=== PATIENT | male | born 1955 | race Hispanic/Latino ===

== ENCOUNTER 2018-04-21 18:33 | Inpatient (IN) | payer OTHER ==
[2018-04-21] MEDS ORDERED: NACL 0.9% 1000 ML 1,000 ML ONE (18:50)
[2018-04-21] MEDS ORDERED: CARDIZEM IV ONE ×2 (18:59→19:02)
[2018-04-21] MEDS ORDERED: NACL 0.9% 1000 ML 1,000 ML IV ONE (19:09)
[2018-04-21] MEDS ORDERED: ZOFRAN IV ONE (19:14)
[2018-04-21] MEDS ORDERED: BABY ASPIRIN PO ONE (19:16)
--- NOTE | 2018-04-21 19:16 | Emergency Department Report ---
HPI - General Chief Complaint: Dyspnea/Respdistress Time Seen by Provider: 04/21/18 19:02 - HPI HPI: The patient's is a 62-year-old male with a significant history of hypertension, presents for evaluation of dyspnea and racing heart. The patient reports constant severe dyspnea since awakening this morning, about 12 hours prior to arrival, severe, exacerbated with physical activity or ambulation, improved at rest. He states that his palpitations have been severe as well, and pounding in quality. He denies pressure-like or sharp chest pain. The patient denies fever, neck pain, parasthesias,cough, hemoptysis, syncope, unilateral leg swelling, calf muscle pain, heat intolerance, insomnia, recent unexplained weight loss. ED Past Medical Hx - Past Medical History Hx Hypertension: Yes Hx Renal Disease: (KIDNEY STONES) Additional medical history: kidney stones - Surgical History Additional Surgical History: tonsils and adnoids removed as a child, surgery for kidney stones (03/2015) - Social History Smoking Status: Current Every Day Smoker Substance Use Type: None - Medications Home Medications: Home Medications Medication Instructions Recorded Confirmed Last Taken Type Lisinopril 20 mg PO QDAY 04/21/18 04/21/18 Unknown History cloNIDine [Catapres] 0.2 mg PO QDAY 04/21/18 04/21/18 Unknown History hydrALAZINE [Apresoline TAB] 25 mg PO QDAY 04/21/18 04/21/18 Unknown History ED Review of Systems ROS: Stated complaint: SOB Other details as noted in HPI Constitutional: denies: fever ENT: denies: throat or neck pain Respiratory: denies: cough reports shortness of breath Cardiovascular: denies: chest pain reports palpitations Endocrine: denies unexplained weight loss or gain Gastrointestinal: denies: abdominal pain, nausea Genitourinary: denies: dysuria Musculoskeletal: denies: leg swelling Skin: denies: rash Neurological: denies: headache Hematological/Lymphatic: denies: easy bleeding or easy bruising Psych: denies sadness or hopelessness Physical Exam - Physical Exam Vital Signs: BP 177/130 HR 180 [id number] O2 sat 99 RR 24 Physical Exam: General: well-nourished, well-developed, no acute distress Head: Normocephalic, atraumatic Eyes: normal sclera ENT: Mucous membranes are pale and dry Neck: No neck stiffness, no cervical adenopathy Respiratory: Breath sounds equal bilaterally, no wheezing, rales, or rhonchi Cardio: S1 and S2 present, no murmurs, rubs, gallops, capillary refill is delayed Abdomen: Normoactive bowel sounds, soft abdomen, no rigidity, no guarding or rebound tenderness Chest WALL/Back: No tenderness to palpation of the chest wall, no CVA tenderness with percussion Musc: No pitting edema Skin: Diaphoretic, warm Neuro: no facial drooping, normal speech Psych: Normal affect ED Medical Decision Making - Lab Data Result diagrams: 04/21/18 20:00 04/21/18 20:00 - Medical Decision Making The patient was seen and examined by myself. The patient is placed on a phototypesetting equipment monitor and continuous pulse ox. On initial evaluation, the patient was found to be in no distress. EKG reveals irregularly irregular narrow complex tachycardia, without P waves, consistent with atrial fibrillation with RVR. The patient is given adenosine for attempted treatment of his age of fibrillation without success. The patient subsequently given a bolus of Cardizem and initiated on a Cardizem infusion which does decrease patient heart rate from 180 to 110s. Cardizem will be titrated to heart rate of 90. Patient given a tablet of aspirin. Chest x-ray is negative for pneumothorax, focal consolidation, pulmonary vascular congestion, pleural effusion, or other obvious acute cardiopulmonary disease process. Lab results were non-concerning including levels of troponin, WBC, hemoglobin, hematocrit, electrolytes, renal function. Dr. Luther, the physician on-call for the hospitalist service was contacted. He agreed to admit the patient for further treatment and close monitoring. The ED admit order was placed. The patient was admitted in guarded condition. Critical Care Time: Yes Critical care time in (mins) excluding proc time.: 35 Critical care attestation.: If time is entered above; I have spent that time in minutes in the direct care of this critically ill patient, excluding procedure time. Critical Care Time: 35 min ED Disposition Clinical Impression: Atrial fibrillation with rapid ventricular response Disposition: OP ADMIT IP TO THIS HOSP Is pt being admited?: Yes Does the pt Need Aspirin: Yes Condition: Critical Time of Disposition: 19:16
[2018-04-21] MEDS ORDERED: MORPHINE IV ONE (20:00)
[2018-04-21] MEDS ORDERED: CARDIZEM 100 MG in D5W 80 ML IV SCH (20:00)
[2018-04-21 20:22] LABS: Basophils # (Auto) 0.1 K/mm3 (0.0-0.1); Basophils % (Auto) 0.8 % (0.0-1.8); Eosinophils # (Auto) 0.2 K/mm3 (0.0-0.4); Eosinophils % (Auto) 1.2 % (0.0-4.3); Hematocrit 41.8 % (35.5-45.6); Hemoglobin 14.6 gm/dl (11.8-15.2); Lymphocytes # (Auto) 1.4 K/mm3 (1.2-5.4); Lymphocytes % (Auto) 11.6 % (13.4-35.0); Mean Corpuscular HGB Conc 35 % (32-34); Mean Corpuscular Hemoglobin 28 pg (28-32); Mean Corpuscular Volume 81 fl (84-94); Monocytes # (Auto) 0.9 K/mm3 (0.0-0.8); Monocytes % (Auto) 7.4 % (0.0-7.3); Platelet Count 296 K/mm3 (140-440); Red Blood Count 5.14 M/mm3 (3.65-5.03); Red Cell Distribution Width 15.4 % (13.2-15.2)
[2018-04-21 20:35] LABS: Partial Thromboplastin Time 32.1 Sec. (24.2-36.6)
[2018-04-21 20:38] LABS: INR 1.08 (0.87-1.13)
[2018-04-21 20:49] LABS: Alanine Aminotransferase 13 units/L (7-56); Albumin 3.4 g/dL (3.9-5); BUN/Creatinine Ratio 11; Blood Urea Nitrogen 13 mg/dL (9-20); Calcium 8.2 mg/dL (8.4-10.2); Hemolysis Index 11
[2018-04-21 21:00] LABS: LDL Cholesterol,Direct 151 mg/dL (50-130)
[2018-04-21 21:01] LABS: Chol/HDL Ratio 7.23 %; HDL Cholesterol 26 mg/dL (40-59)
--- NOTE | 2018-04-21 21:23 | XRay Report ---
FINAL REPORT PROCEDURE: Chest. TECHNIQUE: Chest radiograph anteroposterior view. CPT 41127 HISTORY: Chest pain. COMPARISON: No prior studies are available for comparison. FINDINGS: The heart size is normal. There is mild tortuosity of the thoracic aorta. The lungs are grossly clear. There are no pleural effusions. The soft tissues and regional skeleton are unremarkable. IMPRESSION: Negative portable chest.
--- NOTE | 2018-04-21 23:23 | Event Note ---
Date: 04/21/18 See dictated history and physical in the reports Atrial fibrillation with RVR Htn
[2018-04-21] MEDS ORDERED: PERCOCET 5/325 PO PRN (23:26)
[2018-04-21] MEDS ORDERED: ZOFRAN IV PRN (23:26)
[2018-04-21] MEDS ORDERED: MORPHINE IV PRN (23:26)
[2018-04-21] MEDS ORDERED: SODIUM CHLORIDE FLUSH SYRINGE 10 ML IV PRN (23:26)
[2018-04-21] MEDS ORDERED: TYLENOL PO PRN (23:26)
[2018-04-21] MEDS ORDERED: NACL 0.9% 1000 ML 1,000 ML IV SCH (23:45)
[2018-04-22] MEDS ORDERED: K-DUR PO ONE ×3 (00:10→12:00)
--- NOTE | 2018-04-22 00:13 | History and Physical Report ---
CHIEF COMPLAINT: Palpitations for the last 12 hours. HISTORY OF PRESENT ILLNESS: A 62-year-old male with history of hypertension and kidney stones, comes in for evaluation of palpitations and shortness of breath. The patient has been having severe dyspnea since a.m. when he woke up. It has been going on for 12 hours. Exacerbated with physical activity. Diaphoresis present. Palpitations present. Orthopnea present. No exacerbating or relieving factors. Did not have irregular heart in the past. PAST MEDICAL HISTORY: Hypertension and kidney stones. PAST SURGICAL HISTORY: Tonsils and adenoids removed as a child and also surgery for kidney stones. SOCIAL HISTORY: Current everyday smoker. FAMILY HISTORY: Hypertension. REVIEW OF SYSTEMS: Significant for palpitations, racing of the heart and shortness of breath. Otherwise, review of systems negative. A 14-point review of systems done. PHYSICAL EXAMINATION: GENERAL: Young elderly male, cooperative during examination. VITAL SIGNS: Blood pressure is 144/95, temperature is 98, pulse initially was 150, came down to 99, respirations are 16, sats are 96%. HEENT: Unremarkable. Pupils are equal and reactive. NECK: Supple, no lymphadenopathy, no thyromegaly. LUNGS: Clear to auscultation and percussion. CARDIOVASCULAR: S1, S2 heard. No gallop, no murmur, no rub. Apical impulse in the left fifth intercostal space and midclavicular line. ABDOMEN: Soft and benign. No hepatosplenomegaly. No guarding, no rigidity. Hernial orifices are normal. EXTREMITIES: Good pedal pulses. No pedal edema. CENTRAL NERVOUS SYSTEM: Alert and oriented x 4, nonfocal exam. LABORATORY DATA: Significant for white count of 12,200, hemoglobin of 14.6, hematocrit of 41.8, platelet count of 296. BNP was 4682 and troponin is elevated at 0.049. LDL is 151, potassium is 3.2. EKG shows atrial fibrillation with rapid ventricular rate. Thyroid is normal. ASSESSMENT AND PLAN: 1. Supraventricular tachycardia. The patient was given adenosine with no relief. The patient started on Cardizem drip. The heart rate improved. Continue Cardizem and transition to p.o. Cardizem. Dyspnea, rule out congestive heart failure. The patient to get echocardiogram and Cardiology consult. 2. Hypertension. Continue his current antihypertensives. Blood pressure control. 3. Elevated troponin, rule out myocardial infarction. Serial troponins and Lexiscan in the morning. 4. Nicotine dependence. Nicoderm patch ordered. 5. Deep venous thrombosis prophylaxis, Lovenox 40 mg subcutaneous daily ordered. The patient to be admitted to telemetry. Cardiology consult requested. JOB# [id number] VSM/NTS
[2018-04-22] MEDS: APRESOLINE PO SCH ×2 (00:28→18:12)
[2018-04-22] MEDS: CATAPRES PO SCH ×3 (00:29→22:56)
[2018-04-22 05:47] LABS: Basophils # (Auto) 0.1 K/mm3 (0.0-0.1); Basophils % (Auto) 1.2 % (0.0-1.8); Eosinophils # (Auto) 0.3 K/mm3 (0.0-0.4); Eosinophils % (Auto) 3.3 % (0.0-4.3); Hematocrit 41.5 % (35.5-45.6); Hemoglobin 13.7 gm/dl (11.8-15.2); Lymphocytes # (Auto) 1.5 K/mm3 (1.2-5.4); Lymphocytes % (Auto) 14.6 % (13.4-35.0); Mean Corpuscular HGB Conc 33 % (32-34); Mean Corpuscular Hemoglobin 27 pg (28-32); Mean Corpuscular Volume 82 fl (84-94); Monocytes # (Auto) 0.7 K/mm3 (0.0-0.8); Monocytes % (Auto) 7.3 % (0.0-7.3); Platelet Count 304 K/mm3 (140-440); Red Blood Count 5.08 M/mm3 (3.65-5.03); Red Cell Distribution Width 15.3 % (13.2-15.2)
[2018-04-22 06:03] LABS: Alanine Aminotransferase 11 units/L (7-56); Albumin 3.1 g/dL (3.9-5); BUN/Creatinine Ratio 13; Blood Urea Nitrogen 16 mg/dL (9-20); Calcium 7.9 mg/dL (8.4-10.2); Hemolysis Index 5
[2018-04-22] MEDS ORDERED: LASIX IV ONE (06:30)
--- NOTE | 2018-04-22 06:36 | Event Note ---
Patient complaint shortness of breath He has crackles at the bases Give Lasix, obtain ABG Check CT chest, rule out PE Patient signed out to Dr Santos
--- NOTE | 2018-04-22 07:24 | Cat Scan Report ---
FINAL REPORT EXAM: CT ANGIO CHEST HISTORY: sheree eval for PE TECHNIQUE: CT imaging obtained through the chest in pulmonary angiographic phase following intravenous administration of contrast. Transaxial, Coronal and sagittal reformats with maximal intensity projections are provided. PRIORS: Chest radiograph 04/21/2018 FINDINGS: Normal caliber main pulmonary artery. Well opacified pulmonary arterial tree. No pulmonary embolism. No pericardial effusion. Cardiomegaly. Coronary artery disease. There is reflux of contrast into the hepatic veins. Thoracic aorta is normal in course and caliber. No periaortic fluid or stranding. No pneumothorax or focal airspace disease. There is diffuse interstitial prominence. Moderate right and small left pleural effusions with associated compressive atelectasis. Imaged portion of the upper abdomen is remarkable for 16 millimeter right adrenal nodule with internal attenuation of approximately 26 Hounsfield units. The superficial soft tissues are unremarkable. No acute bony abnormality or worrisome osseous lesions identified. IMPRESSION: Sequela of heart failure including pulmonary interstitial edema and moderate right and small left pleural effusions. No pulmonary embolism or focal airspace disease identified. Indeterminate right adrenal nodule measures up to 16 millimeters. Follow-up MRI is recommended if this finding has not been previously documented. Coronary artery disease. A
--- NOTE | 2018-04-22 09:24 | Consultation ---
History of Present Illness Consult date: 04/22/18 Requesting physician: SANG SPENCE Consult reason: atrial fibrillation History of present illness: The patient is a 62-year-old male with a past medical history significant for hypertension, ETOH use and tobacco use. He is previously unknown to our practice. He presented with complaints of SOB and dyspnea on exertion since he awoke yesterday AM. He denies any chest pain, palpitations, n/v, diaphoresis, dizziness or syncope. Following arrival, he was noted to be in AFib with RVR. He was initiated on IV cardizem and was noted to be in paroxysmal atrial fibrillation overnight. He denies any prior CAD, AMI, HF or arrhythmias. Past History Past Medical History: hypertension Social history: smoking, alcohol abuse. denies: prescription drug abuse, IV drug use Medications and Allergies Allergies Allergy/AdvReac Type Severity Reaction Status Date / Time No Known Allergies Allergy Unverified 08/29/13 12:07 Home Medications Medication Instructions Recorded Confirmed Last Taken Type Lisinopril 20 mg PO QDAY 04/21/18 04/21/18 Unknown History cloNIDine [Catapres] 0.2 mg PO QDAY 04/21/18 04/21/18 Unknown History hydrALAZINE [Apresoline TAB] 25 mg PO QDAY 04/21/18 04/21/18 Unknown History Active Meds: Active Medications Acetaminophen (Tylenol) 650 mg PO Q4H PRN PRN Reason: Pain MILD(1-3)/Fever >100.5/KEMP Clonidine HCl (Catapres) 0.2 mg PO Q12HR MARKIE Last Admin: 04/22/18 00:29 Dose: Not Given Diltiazem HCl (Cardizem Cd) 120 mg PO QDAY MARKIE Enoxaparin Sodium (Lovenox) 40 mg SUB-Q QDAY MARKIE Famotidine (Pepcid) 20 mg PO BID MARKIE Hydralazine HCl (Apresoline) 25 mg PO Q12HR MARKIE Last Admin: 04/22/18 00:28 Dose: Not Given Diltiazem HCl 100 mg/ Dextrose 100 mls @ 5 mls/hr IV DIRECT MARKIE; Protocol Last Infusion: 04/22/18 00:45 Dose: 0 mg/hr, 0 mls/hr Sodium Chloride (Nacl 0.9% 1000 Ml) 1,000 mls @ 42 mls/hr IV DIRECT [facility] Lisinopril (Zestril) 20 mg PO QDAY [facility] Morphine Sulfate (Morphine) 2 mg IV Q4H PRN PRN Reason: Pain, Moderate (4-6) Nicotine (Habitrol) 21 mg TD QDAY [facility] Ondansetron HCl (Zofran) 4 mg IV Q8H PRN PRN Reason: Nausea And Vomiting Oxycodone/Acetaminophen (Percocet 5/325) 1 tab PO Q6H PRN PRN Reason: Pain, Moderate (4-6) Sodium Chloride (Sodium Chloride Flush Syringe 10 Ml) 10 ml IV BID MARKIE Sodium Chloride (Sodium Chloride Flush Syringe 10 Ml) 10 ml IV PRN PRN PRN Reason: LINE FLUSH Review of Systems Constitutional: no weight loss, no weight gain, no fever, no chills, no sweats Ears, nose, mouth and throat: no ear pain, no nose pain, no sinus pressure, no sinus pain Cardiovascular: shortness of breath, dyspnea on exertion, high blood pressure, no chest pain, no orthopnea, no palpitations, no rapid/irregular heart beat, no edema, no syncope, no lightheadedness, no leg edema Respiratory: shortness of breath, dyspnea on exertion, no cough, no congestion, no wheezing, no pain on inspiration Gastrointestinal: no abdominal pain, no nausea, no vomiting, no diarrhea, no constipation, no change in bowel habits Genitourinary Male: no dysuria, no hematuria, no flank pain, no discharge, no urinary frequency, no urinary hesitancy Musculoskeletal: no neck stiffness, no neck pain, no shooting arm pain, no arm numbness/tingling, no low back pain, no shooting leg pain, no leg numbness/ tingling, no redness of joints Integumentary: no rash, no pruritis, no redness, no sores, no wounds Neurological: no head injury, no paralysis, no weakness, no parathesias, no numbness, no tingling, no seizures, no syncope Psychiatric: no anxiety Endocrine: no cold intolerance, no heat intolerance Hematologic/Lymphatic: no easy bruising, no easy bleeding Allergic/Immunologic: no urticaria, no wheezing Physical Examination Vital Signs Temp Pulse Resp BP Pulse Ox 100.1 F H 180 H 20 177/130 98 04/21/18 18:40 04/21/18 18:40 04/21/18 18:40 04/21/18 18:40 04/21/18 18:40 General appearance: no acute distress HEENT: Positive: PERRL, Normocephaly, Mucus Membranes Moist Neck: Positive: neck supple, trachea midline Cardiac: Positive: irregularly irregular, S1/S2 Lungs: Positive: Decreased Breath Sounds Neuro: Positive: Grossly Intact Abdomen: Positive: Soft. Negative: Tender Skin: Positive: Clear. Negative: Rash, Wound Musculoskeletal: No Fluid Collection, No Pain, Normal Range of Motion Extremities: Absent: edema Results 04/22/18 04:58 04/22/18 04:58 Cardiac Enzymes 04/21/18 04/22/18 Range/Units 20:00 04:58 AST 11 10 (5-40) units/L Coagulation 04/21/18 Range/Units 20:00 PT 14.6 (12.2-14.9) Sec. INR 1.08 (0.87-1.13) APTT 32.1 (24.2-36.6) Sec. Lipids 04/21/18 Range/Units 20:00 Triglycerides 130 (2-149) mg/dL Cholesterol 188 (50-199) mg/dL HDL Cholesterol 26 L (40-59) mg/dL Cholesterol/HDL Ratio 7.23 % CBC 04/21/18 04/22/18 Range/Units 20:00 04:58 WBC 12.2 H 10.0 (4.5-11.0) K/mm3 RBC 5.14 H 5.08 H (3.65-5.03) M/mm3 Hgb 14.6 13.7 (11.8-15.2) gm/dl Hct 41.8 41.5 (35.5-45.6) % Plt Count 296 304 (140-440) K/mm3 Lymph # 1.4 1.5 (1.2-5.4) K/mm3 [place] # 0.9 H 0.7 (0.0-0.8) K/mm3 Eos # 0.2 0.3 (0.0-0.4) K/mm3 Baso # 0.1 0.1 (0.0-0.1) K/mm3 Comprehensive Metabolic Panel 04/21/18 04/22/18 Range/Units 20:00 04:58 Sodium 142 140 (137-145) mmol/L Potassium 3.2 L 3.2 L (3.6-5.0) mmol/L Chloride 101.3 103.1 (98-107) mmol/L Carbon Dioxide 26 24 (22-30) mmol/L BUN 13 16 (9-20) mg/dL Creatinine 1.2 1.2 (0.8-1.5) mg/dL Glucose 118 H 120 H (75-100) mg/dL Calcium 8.2 L 7.9 L (8.4-10.2) mg/dL AST 11 10 (5-40) units/L ALT 13 11 (7-56) units/L Alkaline Phosphatase 62 56 (35-129) units/L Total Protein 6.4 6.6 (6.3-8.2) g/dL Albumin 3.4 L 3.1 L (3.9-5) g/dL - Imaging and Cardiology Echo: pending EKG: report reviewed, image reviewed EKG interpretations - Telemetry EKG Rhythm: Atrial Fibrillation - EKG Supraventricular dysrhythmia: atrial fibrillation Assessment and Plan Thyroid profile WNL. Chest CTA negative for PE. Replete K+ and obtain serum Mg. Obtain echo. Optimize HR - increase cardizem CD to 240mg daily and initiate lopressor 25mg BID. Will attempt to wean off home clonidine to allow for addition of other agents. Initiate scheduled diuresis with IV lasix. Initiate full dosage lovenox BID for systemic AC and consider conversion to OAC prior to hospital discharge. Troponin elevation is likely secondary to HF, HTN, AFib with RVR. Pt denies chest pain, ECG with no acute ischemic changes. Cont to trend Peter. Cessation of tobacco and ETOH encouraged. Assessment and plan reviewed with pt at bedside. The patient has been seen in conjunction with Dr. Johnson who agrees with the assessment and plan of care. - Patient Problems (1) Atrial fibrillation with rapid ventricular response Current Visit: Yes Status: Acute (2) Acute heart failure Current Visit: Yes Status: Acute (3) Accelerated hypertension Current Visit: Yes Status: Chronic (4) Hypokalemia Current Visit: Yes Status: Acute (5) Elevated troponin Current Visit: Yes Status: Acute (6) Tobacco use Current Visit: Yes Status: Chronic (7) ETOHism Current Visit: Yes Status: Acute
[2018-04-22] MEDS ORDERED: LOVENOX SUB-Q SCH ×2 (10:00→11:00)
[2018-04-22] MEDS ORDERED: CARDIZEM CD PO SCH (10:00)
[2018-04-22] MEDS: PEPCID PO SCH ×2 (12:28→22:55)
[2018-04-22] MEDS: CARDIZEM CD PO SCH (12:28)
[2018-04-22] MEDS: HABITROL TD SCH (12:29)
[2018-04-22] MEDS: ZESTRIL PO SCH (12:29)
[2018-04-22] MEDS: SODIUM CHLORIDE FLUSH SYRINGE 10 ML IV SCH ×2 (12:29→22:58)
[2018-04-22] MEDS: LOPRESSOR PO SCH ×2 (12:29→22:56)
[2018-04-22] MEDS: LOVENOX SUB-Q SCH ×2 (12:30→22:55)
[2018-04-22 12:50] LABS: Creatine Kinase MB 2.1 ng/mL (0.0-4.0)
[2018-04-22] MEDS ORDERED: CARDIZEM 100 MG in D5W 80 ML IV SCH (15:00)
[2018-04-22] MEDS ORDERED: NACL 0.9% 1000 ML 1,000 ML IV SCH (15:00)
[2018-04-22] MEDS ORDERED: CARDIZEM ONE (15:13)
[2018-04-22] MEDS ORDERED: CARDIZEM IV ONE (15:16)
[2018-04-22] MEDS ORDERED: CORDARONE 900 MG in D5W 482 ML IV SCH (16:00)
[2018-04-22] MEDS ORDERED: CORDARONE 150 MG in D5W 97 ML IV ONE (16:18)
--- NOTE | 2018-04-22 16:27 | Event Note ---
Date: 04/22/18 Called to reevaluate pt for tachycardia - SVT v. AFib with RVR. BPs WNL. Pt denies any current chest pain or palpitations, continues to complain of SOB. ECG shows apparent AFib with RVR. IV cardizem x 1 dose given with no apparent effect in HR. IV amio initiated with some improvement in HR. Cont amio gtt. Maia VELAZQUEZ NP / DR. HENLEY
[2018-04-22] MEDS: LASIX IV SCH (18:43)
[2018-04-23] MEDS: LASIX IV SCH ×2 (06:28→18:38)
[2018-04-23 06:58] LABS: Calcium 7.9 mg/dL (8.4-10.2)
--- NOTE | 2018-04-23 11:55 | Progress Note ---
Assessment and Plan Echo reviewed - EF 30-35%, mild LVH, LA mildly dilated, moderate MR. Replete K+. D/c amio and cont PO lopressor, cardizem and lisinopril. Cont diuresis with IV lasix. Cont full dosage lovenox BID for systemic AC and consider conversion to OAC prior to hospital discharge. Cessation of tobacco and ETOH encouraged. Plan for lexiscan MPI stress test in AM to r/o ischemic CMP. NPO after MN. Assessment and plan reviewed with pt at bedside. The patient has been seen in conjunction with Dr. Johnson who agrees with the assessment and plan of care. - Patient Problems (1) Atrial fibrillation with rapid ventricular response Current Visit: Yes Status: Acute (2) Cardiomyopathy Current Visit: Yes Status: Acute (3) Acute systolic heart failure Current Visit: Yes Status: Acute (4) Accelerated hypertension Current Visit: Yes Status: Chronic (5) Hypokalemia Current Visit: Yes Status: Acute (6) Elevated troponin Current Visit: Yes Status: Acute (7) Moderate mitral regurgitation Current Visit: Yes Status: Chronic (8) Tobacco use Current Visit: Yes Status: Chronic (9) ETOHism Current Visit: Yes Status: Acute Subjective Date of service: 04/23/18 Principal diagnosis: AFib Interval history: pt resting comfortably, no current complaints. tele reviewed - pt has converted to NSR. Objective Last Vital Signs Temp 98.3 F 04/23/18 11:40 Pulse 82 04/23/18 11:40 Resp 20 04/23/18 11:40 BP 123/80 04/23/18 11:40 Pulse Ox 94 04/23/18 11:40 - Physical Examination General: No Apparent Distress HEENT: Positive: PERRL, Normocephaly, Mucus Membranes Moist Neck: Positive: neck supple, trachea midline Cardiac: Positive: Reg Rate and Rhythm, S1/S2 Lungs: Positive: Decreased Breath Sounds Neuro: Positive: Grossly Intact Abdomen: Positive: Soft. Negative: Tender Skin: Positive: Clear. Negative: Rash, Wound Musculoskeletal: No Fluid Collection, No Pain, Normal Range of Motion Extremities: Absent: edema - Labs and Meds Cardiac Enzymes 04/22/18 Range/Units 12:15 CK-MB (CK-2) 2.1 (0.0-4.0) ng/mL Comprehensive Metabolic Panel 04/23/18 Range/Units 05:21 Sodium 141 (137-145) mmol/L Potassium 3.4 L (3.6-5.0) mmol/L Chloride 101.8 (98-107) mmol/L Carbon Dioxide 25 (22-30) mmol/L BUN 19 (9-20) mg/dL Creatinine 1.4 (0.8-1.5) mg/dL Glucose 135 H (75-100) mg/dL Calcium 7.9 L (8.4-10.2) mg/dL - Imaging and Cardiology EKG: report reviewed, image reviewed Echo: pending - Telemetry EKG Rhythm: Sinus Rhythm
[2018-04-23] MEDS ORDERED: K-DUR PO ONE ×2 (13:02→17:54)
[2018-04-23] MEDS: ZESTRIL PO SCH (13:31)
[2018-04-23] MEDS: LOPRESSOR PO SCH ×2 (13:31→21:57)
[2018-04-23] MEDS: CARDIZEM CD PO SCH (13:32)
[2018-04-23] MEDS: PEPCID PO SCH ×2 (13:32→21:57)
[2018-04-23] MEDS: LOVENOX SUB-Q SCH ×2 (13:32→21:57)
[2018-04-23] MEDS: SODIUM CHLORIDE FLUSH SYRINGE 10 ML IV SCH ×2 (13:33→21:58)
[2018-04-23] MEDS: HABITROL TD SCH (13:33)
--- NOTE | 2018-04-23 16:43 | Progress Note ---
Assessment and Plan - Patient Problems (1) Atrial fibrillation with rapid ventricular response Current Visit: Yes Status: Acute Plan to address problem: Cardizem drip restarted Cardiology informed (2) Acute systolic heart failure Current Visit: Yes Status: Acute Plan to address problem: Cont Lasix (3) Cardiomyopathy Current Visit: Yes Status: Chronic Qualifiers: Cardiomyopathy type: unspecified Qualified Code(s): I42.9 - Cardiomyopathy , unspecified Plan to address problem: Optimize meds for CHF (4) Hypokalemia Current Visit: Yes Status: Acute Plan to address problem: Supplemented (5) ETOHism Current Visit: Yes Status: Chronic Plan to address problem: [place] protocol (6) Nicotine dependence Current Visit: Yes Status: Chronic Qualifiers: Nicotine product type: cigarettes Plan to address problem: on Nicoderm patch (7) DVT prophylaxis Current Visit: Yes Status: Acute Plan to address problem: On Lovenox GI prophylaxis initiated Subjective Date of service: 04/22/18 Principal diagnosis: AFib Interval history: palpitations again Objective - Constitutional Vitals: Vital Signs - 12hr 04/23/18 04/23/18 04/23/18 08:03 11:40 16:24 Temperature 98.3 F 98.3 F Pulse Rate 75 82 84 Respiratory 20 20 20 Rate Blood Pressure 109/76 123/80 140/81 [Right] O2 Sat by Pulse 97 94 99 Oximetry General appearance: Present: no acute distress, well-nourished - EENT Eyes: PERRL, EOM intact ENT: hearing intact, clear oral mucosa Ears: bilateral: normal - Neck Neck: supple, normal ROM - Respiratory Respiratory effort: normal Respiratory: bilateral: CTA - Breasts Breasts: normal - Cardiovascular Heart rate: 130 Rhythm: regular Heart Sounds: Present: S1 & S2. Absent: gallop, rub Extremities: pulses intact, No edema, normal color, Full ROM - Gastrointestinal General gastrointestinal: Present: soft, non-tender, non-distended, normal bowel sounds - Genitourinary Male genitourinary: normal - Integumentary Integumentary: clear, warm, dry - Musculoskeletal Musculoskeletal: 1, strength equal bilaterally - Neurologic Neurologic: moves all extremities - Psychiatric Psychiatric: memory intact, appropriate mood/affect, intact judgment & insight - Labs CBC & Chem 7: 04/22/18 04:58 04/23/18 05:21 Labs: Abnormal lab results 04/23/18 Range/Units 05:21 Potassium 3.4 L (3.6-5.0) mmol/L Glucose 135 H (75-100) mg/dL Calcium 7.9 L (8.4-10.2) mg/dL - Imaging and cardiology EKG: report reviewed
--- NOTE | 2018-04-23 16:54 | Progress Note ---
Assessment and Plan - Patient Problems (1) Atrial fibrillation with rapid ventricular response Current Visit: Yes Status: Acute Plan to address problem: Converted to sinus rhythm (2) Acute systolic heart failure Current Visit: Yes Status: Acute Plan to address problem: Cont Lasix (3) Cardiomyopathy Current Visit: Yes Status: Chronic Qualifiers: Cardiomyopathy type: unspecified Qualified Code(s): I42.9 - Cardiomyopathy , unspecified Plan to address problem: Optimize meds for CHF (4) Hypokalemia Current Visit: Yes Status: Acute Plan to address problem: Supplemented (5) ETOHism Current Visit: Yes Status: Chronic Plan to address problem: [place] protocol (6) Nicotine dependence Current Visit: Yes Status: Chronic Qualifiers: Nicotine product type: cigarettes Plan to address problem: on Nicoderm patch (7) DVT prophylaxis Current Visit: Yes Status: Acute Plan to address problem: On Lovenox GI prophylaxis initiated Subjective Date of service: 04/23/18 Principal diagnosis: AFib Interval history: Doing well Objective - Constitutional Vitals: Vital Signs - 12hr 04/23/18 04/23/18 04/23/18 08:03 11:40 16:24 Temperature 98.3 F 98.3 F Pulse Rate 75 82 84 Respiratory 20 20 20 Rate Blood Pressure 109/76 123/80 140/81 [Right] O2 Sat by Pulse 97 94 99 Oximetry General appearance: Present: no acute distress, well-nourished - EENT Eyes: PERRL, EOM intact ENT: hearing intact, clear oral mucosa Ears: bilateral: normal - Neck Neck: supple, normal ROM - Respiratory Respiratory effort: normal Respiratory: bilateral: CTA - Breasts Breasts: normal - Cardiovascular Heart rate: 80 Rhythm: regular Heart Sounds: Present: S1 & S2. Absent: gallop, rub Extremities: no ischemia, pulses intact, No edema, normal color, Full ROM - Gastrointestinal General gastrointestinal: Present: soft, non-tender, non-distended, normal bowel sounds - Genitourinary Male genitourinary: normal - Integumentary Integumentary: clear, warm, dry - Musculoskeletal Musculoskeletal: 1, strength equal bilaterally - Neurologic Neurologic: moves all extremities - Psychiatric Psychiatric: memory intact, appropriate mood/affect, intact judgment & insight - Allied health notes Allied health notes reviewed: nursing, case management - Labs CBC & Chem 7: 04/22/18 04:58 04/23/18 05:21 Labs: Abnormal lab results 04/23/18 Range/Units 05:21 Potassium 3.4 L (3.6-5.0) mmol/L Glucose 135 H (75-100) mg/dL Calcium 7.9 L (8.4-10.2) mg/dL
[2018-04-23] MEDS: CATAPRES PO SCH (21:58)
[2018-04-24] MEDS: LASIX IV SCH (06:10)
[2018-04-24] MEDS ORDERED: LEXISCAN IV ONE ×2 (08:51→08:53)
[2018-04-24] MEDS: CARDIZEM CD PO SCH (11:44)
[2018-04-24] MEDS: ZESTRIL PO SCH (11:45)
[2018-04-24] MEDS: PEPCID PO SCH (11:45)
[2018-04-24] MEDS: HABITROL TD SCH ×2 (11:45→11:57)
[2018-04-24] MEDS: LOPRESSOR PO SCH (11:46)
[2018-04-24] MEDS: LOVENOX SUB-Q SCH (11:46)
[2018-04-24] MEDS: SODIUM CHLORIDE FLUSH SYRINGE 10 ML IV SCH (11:47)
--- NOTE | 2018-04-24 12:05 | Progress Note ---
Assessment and Plan S/p lexiscan MPI stress test this AM which was negative for ischemia, EF 24%. Replete K+. Cont PO lopressor, cardizem and lisinopril. Convert IV lasix to PO 40mg daily. Cessation of tobacco and ETOH encouraged. No indication for continuation of systemic anticoagulation at this time given brief duration (<48Hr) documented AFib/AFlutter. Currently stable cardiac status. Pt may discharge home from cardiology standpoint. Recommend follow up in our office with Dr. Johnson within 1-2 weeks of hospital discharge ([phone]). Assessment and plan reviewed with pt at bedside. The patient has been seen in conjunction with Dr. Johnson who agrees with the assessment and plan of care. - Patient Problems (1) Atrial fibrillation with rapid ventricular response Current Visit: Yes Status: Acute (2) Cardiomyopathy Current Visit: Yes Status: Chronic Qualifiers: Cardiomyopathy type: unspecified Qualified Code(s): I42.9 - Cardiomyopathy , unspecified (3) Acute systolic heart failure Current Visit: Yes Status: Acute (4) Accelerated hypertension Current Visit: Yes Status: Chronic (5) Hypokalemia Current Visit: Yes Status: Acute (6) Elevated troponin Current Visit: Yes Status: Acute (7) Moderate mitral regurgitation Current Visit: Yes Status: Chronic (8) Tobacco use Current Visit: Yes Status: Chronic (9) ETOHism Current Visit: Yes Status: Chronic Subjective Date of service: 04/24/18 Principal diagnosis: AFib Interval history: pt for stress test, no current complaints. remains in SR. Objective Last Vital Signs Temp 97.9 F 04/24/18 08:04 Pulse 83 04/24/18 11:46 Resp 20 04/24/18 08:04 BP 121/61 04/24/18 11:46 Pulse Ox 95 04/24/18 08:04 - Physical Examination General: No Apparent Distress HEENT: Positive: PERRL, Normocephaly, Mucus Membranes Moist Neck: Positive: neck supple, trachea midline Cardiac: Positive: Reg Rate and Rhythm, S1/S2 Lungs: Positive: clear to auscultation Neuro: Positive: Grossly Intact Abdomen: Positive: Soft. Negative: Tender Skin: Positive: Clear. Negative: Rash, Wound Musculoskeletal: No Fluid Collection, No Pain, Normal Range of Motion Extremities: Absent: edema - Labs and Meds Comprehensive Metabolic Panel 04/24/18 Range/Units 05:06 Sodium 141 (137-145) mmol/L Potassium 3.3 L (3.6-5.0) mmol/L Chloride 100.7 (98-107) mmol/L Carbon Dioxide 26 (22-30) mmol/L BUN 25 H (9-20) mg/dL Creatinine 1.5 (0.8-1.5) mg/dL Glucose 112 H (75-100) mg/dL Calcium 8.0 L (8.4-10.2) mg/dL - Imaging and Cardiology EKG: report reviewed Echo: report reviewed (EF 30-35%, mild LVH, LA mildly dilated, moderate MR) - Telemetry EKG Rhythm: Sinus Rhythm
[2018-04-24] MEDS ORDERED: K-DUR PO ONE (13:00)
--- NOTE | 2018-04-24 14:23 | Treadmill Report ---
MYOCARDIAL PERFUSION IMAGING STUDY Resting images revealed homogeneous radioisotope activity throughout the myocardium. On post-Lexiscan, again similar uptake is noted. On gated scan, there was diffuse hypokinesis of the ventricle with ejection fraction of 24%. There is no transient ischemic dilatation. IMPRESSION: 1. This test is negative for ischemia. 2. Left ventricular systolic dysfunction with ejection fraction of 25%. JOB# [id number] TUCKER/NTS
[2018-04-24 16:30] VITALS: BP 128/65
--- NOTE | 2018-04-24 16:41 | Discharge Summary ---
Providers - Providers Date of Admission: 04/21/18 23:26 Date of discharge: 04/24/18 Attending physician: SANG SPENCE 04/21/18 23:51 Consult to Physician [CONS] Routine Comment: Consulting Provider: JERMAIN DAHL Physician Instructions: Reason For Exam: SVT Primary care physician: [employer] Hospitalization Condition: Critical Hospital course: Assessment and Plan S/p lexiscan MPI stress test this AM which was negative for ischemia, EF 24%. Replete K+. Cont PO lopressor, cardizem and lisinopril. Convert IV lasix to PO 40mg daily. Cessation of tobacco and ETOH encouraged. No indication for continuation of systemic anticoagulation at this time given brief duration (<48Hr) documented AFib/AFlutter. Currently stable cardiac status. Pt may discharge home from cardiology standpoint. - Patient Problems (1) Atrial fibrillation with rapid ventricular response Current Visit: Yes Status: Acute (2) Cardiomyopathy Current Visit: Yes Status: Chronic Qualifiers: Cardiomyopathy type: unspecified Qualified Code(s): I42.9 - Cardiomyopathy , unspecified (3) Acute systolic heart failure Current Visit: Yes Status: Acute (4) Accelerated hypertension Current Visit: Yes Status: Chronic (5) Hypokalemia Current Visit: Yes Status: Acute (6) Elevated troponin Current Visit: Yes Status: Acute (7) Moderate mitral regurgitation Current Visit: Yes Status: Chronic (8) Tobacco use Current Visit: Yes Status: Chronic (9) ETOHism Current Visit: Yes Status: Chronic Disposition: DC-01 TO HOME OR SELFCARE - Discharge Diagnoses (1) Atrial fibrillation with rapid ventricular response Status: Acute (2) Acute systolic heart failure Status: Acute (3) Cardiomyopathy Status: Chronic Qualifiers: Cardiomyopathy type: unspecified Qualified Code(s): I42.9 - Cardiomyopathy , unspecified (4) Hypokalemia Status: Acute (5) ETOHism Status: Chronic (6) Nicotine dependence Status: Chronic Qualifiers: Nicotine product type: cigarettes (7) DVT prophylaxis Status: Acute Exam - Constitutional Vitals: Temp Pulse Resp BP Pulse Ox 100.0 F H 83 20 128/65 95 04/24/18 16:29 04/24/18 16:29 04/24/18 16:29 04/24/18 16:29 04/24/18 16:29 Plan Follow up with: FRIEDA WHITTINGTON MD [Primary Care Provider] - 7 Days
[2018-04-25] MEDS ORDERED: LASIX PO SCH (10:00)
== END 2018-04-24 18:55 | disposition home or self-care (01) | DRG 308 ==
LOC: ED 18:33 → 4A 23:26
PROVIDERS: ADMIT Internal Medicine; ATTEND Internal Medicine
DX: I48.91 Unspecified atrial fibrillation (principal); I50.21 Acute systolic (congestive) heart failure; F17.210 Nicotine dependence, cigarettes, uncomplicated; I47.1 Supraventricular tachycardia; I11.0 Hypertensive heart disease with heart failure; E87.6 Hypokalemia; I42.9 Cardiomyopathy, unspecified; I34.0 Nonrheumatic mitral (valve) insufficiency; Z87.442 Personal history of urinary calculi; Z82.49 Family history of ischemic heart disease and other diseases of the circulatory system
CPT/HCPCS: 36415; 36600; 71045; 71275; 78452; 80048; 80053; 80061; 82550; 82553; 82803; 83036; 83735; 83880; 84439; 84443; 84484; 85025; 85610; 85730; 93005; 93010; 93017; 93306; 96374; 96375; 99291; 99406; A9502; J0153; J0282; J1650; J1940; J2270; J2405; J2785; J7030; J7060; Q9967

== ENCOUNTER 2019-05-25 15:31 | Emergency (ER) | payer SELFPAY ==
--- NOTE | 2019-05-25 16:03 | Emergency Department Report ---
Blank Doc - Documentation Documentation: 63-year-old male that presents with left shoulder abscess. This initial assessment/diagnostic orders/clinical plan/treatment(s) is/are subject to change based on patient's health status, clinical progression and re- assessment by fellow clinical providers in the ED. Further treatment and workup at subsequent clinical providers discretion. Patient/guardians urged not to elope from the ED as their condition may be serious if not clinically assessed and managed. Initial orders include: 1- Patient sent to [facility] for further evaluation and treatment
[2019-05-25] MEDS ORDERED: CLEOCIN 600 MG/50 mL 600 MG/50 ML BAG IV ONE (19:31)
[2019-05-25] MEDS ORDERED: NACL 0.9% 1000 ML 1,000 ML IV ONE (19:31)
[2019-05-25 20:03] LABS: Basophils # (Auto) 0.1 K/mm3 (0.0-0.1); Basophils % (Auto) 0.7 % (0.0-1.8); Eosinophils # (Auto) 0.7 K/mm3 (0.0-0.4); Eosinophils % (Auto) 6.2 % (0.0-4.3); Hematocrit 37.5 % (35.5-45.6); Hemoglobin 12.3 gm/dl (11.8-15.2); Lymphocytes # (Auto) 1.4 K/mm3 (1.2-5.4); Lymphocytes % (Auto) 12.6 % (13.4-35.0); Mean Corpuscular HGB Conc 33 % (32-34); Mean Corpuscular Volume 81 fl (84-94); Monocytes # (Auto) 0.8 K/mm3 (0.0-0.8); Monocytes % (Auto) 6.8 % (0.0-7.3); Platelet Count 455 K/mm3 (140-440); Red Blood Count 4.64 M/mm3 (3.65-5.03); Red Cell Distribution Width 15.2 % (13.2-15.2)
[2019-05-25 20:20] LABS: INR 4.55 (0.87-1.13)
[2019-05-25 20:39] LABS: Partial Thromboplastin Time 79.6 Sec. (24.2-36.6)
[2019-05-25 20:45] LABS: Alanine Aminotransferase 10 units/L (7-56); Albumin 3.3 g/dL (3.9-5); BUN/Creatinine Ratio 19; Blood Urea Nitrogen 23 mg/dL (9-20); Calcium 8.6 mg/dL (8.4-10.2); Hemolysis Index 1
--- NOTE | 2019-05-25 20:55 | Emergency Department Report ---
- General Chief complaint: Skin/Abscess/Foreign Body Stated complaint: LFT SHOULDER/RT PAIN Time Seen by Provider: 05/25/19 16:00 Source: patient, family Mode of arrival: Wheelchair Limitations: No Limitations - History of Present Illness Initial comments: Patient is a 63-year-old male presents emergency room brought in by his sister with complaints of a possible abscess to the left shoulder and right axilla that began a week ago. The patient's sister states that there has been a lot of pus drainage from the area on the left shoulder. States that he stays in a personal care facility. pt and patient's sister deny any fever, vomiting, any other symptoms. pt has a past medical history of CVA, A. fib, hypertension, CHF. Patient is on warfarin. pt is at his normal baseline per pts sister. - Related Data Previous Rx's Medication Instructions Recorded Last Taken Type Aspirin EC [Halfprin EC] 81 mg PO QDAY #30 tablet 12/12/18 Unknown Rx AtorvaSTATin [Lipitor] 40 mg PO QHS #30 tablet 12/12/18 Unknown Rx Furosemide [Lasix TAB] 40 mg PO QDAY #30 tablet 12/12/18 Unknown Rx Lisinopril [Zestril TAB] 20 mg PO QDAY #30 tablet 12/12/18 Unknown Rx Metoprolol [Lopressor TAB] 25 mg PO BID #60 tablet 12/12/18 Unknown Rx Warfarin [Coumadin] 2 mg PO DAILY #30 tablet 12/12/18 Unknown Rx dilTIAZem [CarDIZEM] 30 mg PO Q6HR #120 tablet 12/12/18 Unknown Rx metFORMIN [Glucophage] 500 mg PO BIDDIAB #60 tablet 12/12/18 Unknown Rx Clindamycin [Clindamycin CAP] 450 mg PO TID 10 Days #90 capsule 05/25/19 Unknown Rx Allergies Allergy/AdvReac Type Severity Reaction Status Date / Time No Known Allergies Allergy Unverified 11/16/18 12:07 Abscess Boil HPI - HPI Chief Complaint: Skin/Abscess/Foreign Body Stated Complaint: LFT SHOULDER/RT PAIN Time Seen by Provider: 05/25/19 16:00 Home Medications: Previous Rx's Medication Instructions Recorded Last Taken Type Aspirin EC [Halfprin EC] 81 mg PO QDAY #30 tablet 12/12/18 Unknown Rx AtorvaSTATin [Lipitor] 40 mg PO QHS #30 tablet 12/12/18 Unknown Rx Furosemide [Lasix TAB] 40 mg PO QDAY #30 tablet 12/12/18 Unknown Rx Lisinopril [Zestril TAB] 20 mg PO QDAY #30 tablet 12/12/18 Unknown Rx Metoprolol [Lopressor TAB] 25 mg PO BID #60 tablet 12/12/18 Unknown Rx Warfarin [Coumadin] 2 mg PO DAILY #30 tablet 12/12/18 Unknown Rx dilTIAZem [CarDIZEM] 30 mg PO Q6HR #120 tablet 12/12/18 Unknown Rx metFORMIN [Glucophage] 500 mg PO BIDDIAB #60 tablet 12/12/18 Unknown Rx Clindamycin [Clindamycin CAP] 450 mg PO TID 10 Days #90 capsule 05/25/19 Unknown Rx Allergies/Adverse Reactions: Allergies Allergy/AdvReac Type Severity Reaction Status Date / Time No Known Allergies Allergy Unverified 11/16/18 12:07 ED Review of Systems ROS: Stated complaint: LFT SHOULDER/RT PAIN Other details as noted in HPI Comment: All other systems reviewed and negative ED Past Medical Hx - Past Medical History Previous Medical History?: Yes Hx Hypertension: Yes Hx Congestive Heart Failure: Yes Hx Diabetes: No Hx Renal Disease: (KIDNEY STONES) Hx Kidney Stones: Yes Hx Asthma: No Hx COPD: No Hx HIV: No Additional medical history: kidney stones - Surgical History Past Surgical History?: Yes Additional Surgical History: tonsils and adnoids removed as a child, surgery for kidney stones (03/2015) - Social History Smoking Status: Never Smoker Substance Use Type: None - Medications Home Medications: Home Medications Medication Instructions Recorded Confirmed Last Taken Type Aspirin EC [Halfprin EC] 81 mg PO QDAY #30 tablet 12/12/18 Unknown Rx AtorvaSTATin [Lipitor] 40 mg PO QHS #30 tablet 12/12/18 Unknown Rx Furosemide [Lasix TAB] 40 mg PO QDAY #30 tablet 12/12/18 Unknown Rx Lisinopril [Zestril TAB] 20 mg PO QDAY #30 tablet 12/12/18 Unknown Rx Metoprolol [Lopressor TAB] 25 mg PO BID #60 tablet 12/12/18 Unknown Rx Warfarin [Coumadin] 2 mg PO DAILY #30 tablet 12/12/18 Unknown Rx dilTIAZem [CarDIZEM] 30 mg PO Q6HR #120 tablet 12/12/18 Unknown Rx metFORMIN [Glucophage] 500 mg PO BIDDIAB #60 tablet 12/12/18 Unknown Rx Clindamycin [Clindamycin CAP] 450 mg PO TID 10 Days #90 capsule 05/25/19 Unknown Rx ED Physical Exam - General Limitations: No Limitations General appearance: alert, in no apparent distress - Head Head exam: Present: atraumatic, normocephalic - Eye Eye exam: Present: normal appearance - ENT ENT exam: Present: mucous membranes moist - Neurological Exam Neurological exam: Present: alert, other (orinted to self and time) - Psychiatric Psychiatric exam: Present: normal affect, normal mood - Skin Skin exam: Present: warm, dry, other (erythema, increased warmth, and several openings with pus drainage present to the left shoulder, no central area of fluid collection, small area of redness with tiny pus drainage present to the right axilla, no area of fluctuance) ED Course Vital Signs 05/25/19 05/25/19 05/26/19 15:43 16:01 04:11 Temperature 98.7 F 98.7 F Pulse Rate 77 96 H 90 Respiratory 16 18 16 Rate Blood Pressure 137/73 137/73 Blood Pressure 141/73 [Right] O2 Sat by Pulse 96 98 99 Oximetry ED Medical Decision Making - Lab Data Result diagrams: 05/25/19 19:41 05/25/19 19:41 Lab Results 05/25/19 05/25/19 05/25/19 Range/Units 19:41 19:41 19:41 WBC 11.4 H (4.5-11.0) K/mm3 RBC 4.64 (3.65-5.03) M/mm3 Hgb 12.3 (11.8-15.2) gm/dl Hct 37.5 (35.5-45.6) % MCV 81 L (84-94) fl MCH 27 L (28-32) pg MCHC 33 (32-34) % RDW 15.2 (13.2-15.2) % Plt Count 455 H (140-440) K/mm3 Lymph % (Auto) 12.6 L (13.4-35.0) % [place] % (Auto) 6.8 (0.0-7.3) % Eos % (Auto) 6.2 H (0.0-4.3) % Baso % (Auto) 0.7 (0.0-1.8) % Lymph # 1.4 (1.2-5.4) K/mm3 [place] # 0.8 (0.0-0.8) K/mm3 Eos # 0.7 H (0.0-0.4) K/mm3 Baso # 0.1 (0.0-0.1) K/mm3 Seg Neutrophils % 73.7 H (40.0-70.0) % Seg Neutrophils # 8.4 H (1.8-7.7) K/mm3 PT 42.5 H (12.2-14.9) Sec. INR 4.55 H (0.87-1.13) APTT 79.6 H* (24.2-36.6) Sec. Sodium 142 (137-145) mmol/L Potassium 3.6 (3.6-5.0) mmol/L Chloride 104.2 (98-107) mmol/L Carbon Dioxide 23 (22-30) mmol/L Anion Gap 18 mmol/L BUN 23 H (9-20) mg/dL Creatinine 1.2 (0.8-1.5) mg/dL Estimated GFR > 60 ml/min BUN/Creatinine Ratio 19 % Glucose 131 H (75-100) mg/dL Lactic Acid (0.7-2.0) mmol/L Calcium 8.6 (8.4-10.2) mg/dL Total Bilirubin 0.20 (0.1-1.2) mg/dL AST 9 (5-40) units/L ALT 10 (7-56) units/L Alkaline Phosphatase 58 (35-129) units/L Total Protein 7.3 (6.3-8.2) g/dL Albumin 3.3 L (3.9-5) g/dL Albumin/Globulin Ratio 0.8 % 05/25/19 Range/Units 19:41 WBC (4.5-11.0) K/mm3 RBC (3.65-5.03) M/mm3 Hgb (11.8-15.2) gm/dl Hct (35.5-45.6) % MCV (84-94) fl MCH (28-32) pg MCHC (32-34) % RDW (13.2-15.2) % Plt Count (140-440) K/mm3 Lymph % (Auto) (13.4-35.0) % [place] % (Auto) (0.0-7.3) % Eos % (Auto) (0.0-4.3) % Baso % (Auto) (0.0-1.8) % Lymph # (1.2-5.4) K/mm3 [place] # (0.0-0.8) K/mm3 Eos # (0.0-0.4) K/mm3 Baso # (0.0-0.1) K/mm3 Seg Neutrophils % (40.0-70.0) % Seg Neutrophils # (1.8-7.7) K/mm3 PT (12.2-14.9) Sec. INR (0.87-1.13) APTT (24.2-36.6) Sec. Sodium (137-145) mmol/L Potassium (3.6-5.0) mmol/L Chloride (98-107) mmol/L Carbon Dioxide (22-30) mmol/L Anion Gap mmol/L BUN (9-20) mg/dL Creatinine (0.8-1.5) mg/dL Estimated GFR ml/min BUN/Creatinine Ratio % Glucose (75-100) mg/dL Lactic Acid 1.20 (0.7-2.0) mmol/L Calcium (8.4-10.2) mg/dL Total Bilirubin (0.1-1.2) mg/dL AST (5-40) units/L ALT (7-56) units/L Alkaline Phosphatase (35-129) units/L Total Protein (6.3-8.2) g/dL Albumin (3.9-5) g/dL Albumin/Globulin Ratio % - Radiology Data Radiology results: report reviewed LEFT SHOULDER 3 VIEWS INDICATION / CLINICAL INFORMATION: cellulitis/drainage left shoulder region COMPARISON: None available. FINDINGS: BONES / JOINT(S): No acute fracture or subluxation. There is mild degenerative change in the glenohumeral joint and in the AC joint. SOFT TISSUES: No significant abnormality. ADDITIONAL FINDINGS: None. Signer Name: Butch Archuleta MD Signed: 05/25/2019 9:29 PM Workstation Name: [id number] Transcribed By: Dictated By: Butch Archuleta MD Electronically Authenticated By: Butch Archuleta MD Signed Date/Time: 05/25/192128 - Medical Decision Making Patient is a 63-year-old male presents emergency room brought in by his sister with complaints of a possible abscess to the left shoulder and right axilla that began a week ago. The patient's sister states that there has been a lot of pus drainage from the area on the left shoulder. States that he stays in a personal care facility. pt and patient's sister deny any fever, vomiting, any other symptoms. pt has a past medical history of CVA, A. fib, hypertension, CHF. Patient is on warfarin. pt is at his normal baseline per pts sister. VSS. on exam: erythema, increased warmth, and several openings with pus drainage present to the left shoulder, no central area of fluid collection, small area of redness with tiny pus drainage present to the right axilla, no area of fluctuance. No drainable fluid collection at this time. Appears to be a carbuncle with multiple small openings and it is already open and draining. WBC is 11.4, lactic acid is normal. PT/INR is supratherapeutic advised daughter to have them hold for 24 hours then resume. XR left shoulder no acute process. Patient given IV clindamycin while in the emergency department. Patient evaluated by Dr. Gaby Cartagena who agrees with outpatient antibiotic therapy and wound care follow-up. I spoke with [facility] the facility taking care of patient and discussed supratherapeutic INR and advised to hold coumadin for 24 hours and she verbalized understanding. - Differential Diagnosis cellulitis, abscess, furuncle, carbuncle Critical care attestation.: If time is entered above; I have spent that time in minutes in the direct care of this critically ill patient, excluding procedure time. ED Disposition Clinical Impression: Carbuncle, Supratherapeutic INR Cellulitis Qualifiers: Site of cellulitis: extremity Site of cellulitis of extremity: upper extremity Laterality: left Qualified Code(s): L03.114 - Cellulitis of left upper limb Disposition: DC-01 TO HOME OR SELFCARE Is pt being admited?: No Does the pt Need Aspirin: No Condition: Stable Instructions: Cellulitis (ED) Additional Instructions: Please give medication as prescribed completion. please follow-up with the wound clinic. Return to the emergency room for any new or worsening symptoms or any worsening signs of infection despite antibiotic therapy. Prescriptions: Clindamycin [Clindamycin CAP] 450 mg PO TID 10 Days #90 capsule Referrals: [facility] [Outside] - 2-3 Days Time of Disposition: 22:47 Print Language: SURINAMESE
--- NOTE | 2019-05-25 21:34 | XRay Report ---
LEFT SHOULDER 3 VIEWS INDICATION / CLINICAL INFORMATION: cellulitis/drainage left shoulder region COMPARISON: None available. FINDINGS: BONES / JOINT(S): No acute fracture or subluxation. There is mild degenerative change in the glenohum eral joint and in the AC joint. SOFT TISSUES: No significant abnormality. ADDITIONAL FINDINGS: None. Signer Name: Butch Archuleta MD Signed: 05/25/2019 9:29 PM Workstation Name: [id number]
[2019-05-26 04:12] VITALS: BP 141/73
== END 2019-05-25 23:15 | disposition home or self-care (01) ==
LOC: ED 15:31
DX: L02.414 Cutaneous abscess of left upper limb (principal); L02.411 Cutaneous abscess of right axilla; I11.0 Hypertensive heart disease with heart failure; I50.9 Heart failure, unspecified; Z87.442 Personal history of urinary calculi; Z90.89 Acquired absence of other organs
CPT/HCPCS: 36415; 73030; 80053; 82140; 85025; 85610; 85730; 96365; 99284; J7030

== ENCOUNTER 2020-08-16 13:08 | Emergency (ER) | payer SELFPAY ==
[2020-08-16 17:50] LABS: Basophils % (Auto) 0.6 % (0.0-1.8); Eosinophils # (Auto) 0.1 K/mm3 (0.0-0.4); Hematocrit 36.8 % (35.5-45.6); Hemoglobin 12.1 gm/dl (11.8-15.2); Lymphocytes # (Auto) 0.8 K/mm3 (1.2-5.4); Lymphocytes % (Auto) 15.2 % (13.4-35.0); Mean Corpuscular HGB Conc 33 % (32-34); Mean Corpuscular Volume 73 fl (84-94); Monocytes # (Auto) 0.5 K/mm3 (0.0-0.8); Monocytes % (Auto) 9.2 % (0.0-7.3); Platelet Count 276 K/mm3 (140-440); Red Blood Count 5.04 M/mm3 (3.65-5.03); Red Cell Distribution Width 17.6 % (13.2-15.2)
[2020-08-16 18:08] LABS: Albumin 3.5 g/dL (3.9-5); Calcium 8.5 mg/dL (8.4-10.2)
[2020-08-16 18:10] LABS: INR 1.72 (0.87-1.13)
[2020-08-16 18:11] LABS: Partial Thromboplastin Time 46.8 Sec. (24.2-36.6)
--- NOTE | 2020-08-16 18:23 | Emergency Department Report ---
HPI - General Chief Complaint: Medical Clearance Time Seen by Provider: 08/16/20 18:09 - HPI HPI: This is a 65-year-old male who presents to the emergency department from [facility] with a complaint of hematuria. The patient stays at [facility] and they noticed some blood in his diaper. Patient has a past medical history of CHF, CKD, hypertension, atrial fibrillation anticoagulated on Coumadin/warfarin, previous CVA. The patient is a poor historian. 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 He is at his baseline mental status. ED Past Medical Hx - Past Medical History Hx Hypertension: Yes Hx Congestive Heart Failure: Yes Hx Diabetes: No Hx Renal Disease: (KIDNEY STONES) Hx Kidney Stones: Yes Hx Asthma: No Hx COPD: No Hx HIV: No Additional medical history: Atrial fib, CKD stage 3, correction use of a nticoagulants - Surgical History Past Surgical History?: Yes Additional Surgical History: tonsils and adnoids removed as a child, surgery for kidney stones (03/2015) - Social History Smoking Status: Former Smoker Substance Use Type: None - Medications Home Medications: Home Medications Medication Instructions Recorded Confirmed Last Taken Type Aspirin EC [Halfprin EC] 81 mg PO QDAY #30 tablet 12/12/18 Unknown Rx AtorvaSTATin [Lipitor] 40 mg PO QHS #30 tablet 12/12/18 Unknown Rx Furosemide [Lasix TAB] 40 mg PO QDAY #30 tablet 12/12/18 Unknown Rx Metoprolol [Lopressor TAB] 25 mg PO BID #60 tablet 12/12/18 Unknown Rx Warfarin [Coumadin] 2 mg PO DAILY #30 tablet 12/12/18 Unknown Rx dilTIAZem [CarDIZEM] 30 mg PO Q6HR #120 tablet 12/12/18 Unknown Rx lisinopriL [Zestril TAB] 20 mg PO QDAY #30 tablet 12/12/18 Unknown Rx metFORMIN [Glucophage] 500 mg PO BIDDIAB #60 tablet 12/12/18 Unknown Rx Clindamycin [Clindamycin CAP] 450 mg PO TID 10 Days #90 capsule 05/25/19 Unknown Rx Ciprofloxacin HCl [Ciprofloxacin 500 mg PO Q12HR #12 tab 08/16/20 Unknown Rx TAB] ED Review of Systems ROS: Stated complaint: BLOOD IN URINE Other details as noted in HPI Comment: Unobtainable due to pts medical conditions Genitourinary: hematuria Physical Exam - Physical Exam Vital Signs: Vital Signs 08/16/20 13:18 Temperature 98.2 F Pulse Rate 73 Respiratory 18 Rate Blood Pressure 128/61 O2 Sat by Pulse 98 Oximetry Physical Exam: GENERAL: The patient is well-developed well-nourished. HENT: Normocephalic. Atraumatic. Patient has moist mucous membranes. EYES: Extraocular motions are intact. NECK: Supple. Trachea is midline. CHEST/LUNGS: Clear to auscultation. There is no respiratory distress noted. HEART/CARDIOVASCULAR: Regular. There is no tachycardia. There is no murmur. ABDOMEN: Abdomen is soft, nontender. Patient has normal bowel sounds. SKIN: Skin is warm and dry. NEURO: Patient is awake but otherwise is nonverbal and does not follow commands. MUSCULOSKELETAL: No tenderness to palpation. ED Course Vital Signs 08/16/20 13:18 Temperature 98.2 F Pulse Rate 73 Respiratory 18 Rate Blood Pressure 128/61 O2 Sat by Pulse 98 Oximetry ED Medical Decision Making - Lab Data Result diagrams: 08/16/20 17:19 08/16/20 17:19 Lab Results 08/16/20 08/16/20 08/16/20 Range/Units 17:19 17:19 17:19 WBC 5.0 (4.5-11.0) K/mm3 RBC 5.04 H (3.65-5.03) M/mm3 Hgb 12.1 (11.8-15.2) gm/dl Hct 36.8 (35.5-45.6) % MCV 73 L (84-94) fl MCH 24 L (28-32) pg MCHC 33 (32-34) % RDW 17.6 H (13.2-15.2) % Plt Count 276 (140-440) K/mm3 Lymph % (Auto) 15.2 (13.4-35.0) % [place] % (Auto) 9.2 H (0.0-7.3) % Eos % (Auto) 2.0 (0.0-4.3) % Baso % (Auto) 0.6 (0.0-1.8) % Lymph # (Auto) 0.8 L (1.2-5.4) K/mm3 [place] # (Auto) 0.5 (0.0-0.8) K/mm3 Eos # (Auto) 0.1 (0.0-0.4) K/mm3 Baso # (Auto) 0.0 (0.0-0.1) K/mm3 Seg Neutrophils % 73.0 H (40.0-70.0) % Seg Neutrophils # 3.6 (1.8-7.7) K/mm3 PT 20.2 H (12.2-14.9) Sec. INR 1.72 H (0.87-1.13) APTT 46.8 H (24.2-36.6) Sec. Sodium 138 (137-145) mmol/L Potassium 4.1 (3.6-5.0) mmol/L Chloride 103.8 (98-107) mmol/L Carbon Dioxide 23 (22-30) mmol/L Anion Gap 15 mmol/L BUN 17 (9-20) mg/dL Creatinine 1.4 H (0.8-1.3) mg/dL Estimated GFR 51 ml/min BUN/Creatinine Ratio 12 % Glucose 122 H (75-100) mg/dL Calcium 8.5 (8.4-10.2) mg/dL Total Bilirubin 0.30 (0.1-1.2) mg/dL AST 15 (5-40) units/L ALT 17 (7-56) units/L Alkaline Phosphatase 73 (35-129) units/L Total Protein 6.5 (6.3-8.2) g/dL Albumin 3.5 L (3.9-5) g/dL Albumin/Globulin Ratio 1.2 % Urine Color (Yellow) Urine Turbidity (Clear) Urine pH (5.0-7.0) Ur Specific [place] (1.003-1.030) Urine Protein (Negative) mg/dL Urine Glucose (UA) (Negative) mg/dL Urine Ketones (Negative) mg/dL Urine Blood (Negative) Urine Nitrite (Negative) Urine Bilirubin (Negative) Urine Urobilinogen (<2.0) mg/dL Ur Leukocyte Esterase (Negative) Urine WBC (Auto) (0.0-6.0) /HPF Urine RBC (Auto) (0.0-6.0) /HPF Urine Bacteria (Auto) (Negative) /HPF Urine Mucus /HPF 08/16/20 Range/Units Unknown WBC (4.5-11.0) K/mm3 RBC (3.65-5.03) M/mm3 Hgb (11.8-15.2) gm/dl Hct (35.5-45.6) % MCV (84-94) fl MCH (28-32) pg MCHC (32-34) % RDW (13.2-15.2) % Plt Count (140-440) K/mm3 Lymph % (Auto) (13.4-35.0) % [place] % (Auto) (0.0-7.3) % Eos % (Auto) (0.0-4.3) % Baso % (Auto) (0.0-1.8) % Lymph # (Auto) (1.2-5.4) K/mm3 [place] # (Auto) (0.0-0.8) K/mm3 Eos # (Auto) (0.0-0.4) K/mm3 Baso # (Auto) (0.0-0.1) K/mm3 Seg Neutrophils % (40.0-70.0) % Seg Neutrophils # (1.8-7.7) K/mm3 PT (12.2-14.9) Sec. INR (0.87-1.13) APTT (24.2-36.6) Sec. Sodium (137-145) mmol/L Potassium (3.6-5.0) mmol/L Chloride (98-107) mmol/L Carbon Dioxide (22-30) mmol/L Anion Gap mmol/L BUN (9-20) mg/dL Creatinine (0.8-1.3) mg/dL Estimated GFR ml/min BUN/Creatinine Ratio % Glucose (75-100) mg/dL Calcium (8.4-10.2) mg/dL Total Bilirubin (0.1-1.2) mg/dL AST (5-40) units/L ALT (7-56) units/L Alkaline Phosphatase (35-129) units/L Total Protein (6.3-8.2) g/dL Albumin (3.9-5) g/dL Albumin/Globulin Ratio % Urine Color Yellow (Yellow) Urine Turbidity Turbid (Clear) Urine pH 5.0 (5.0-7.0) Ur Specific [place] 1.017 (1.003-1.030) Urine Protein >500 (Negative) mg/dL Urine Glucose (UA) Neg (Negative) mg/dL Urine Ketones Neg (Negative) mg/dL Urine Blood Lg (Negative) Urine Nitrite Pos (Negative) Urine Bilirubin Neg (Negative) Urine Urobilinogen < 2.0 (<2.0) mg/dL Ur Leukocyte Esterase Mod (Negative) Urine WBC (Auto) > 182.0 H (0.0-6.0) /HPF Urine RBC (Auto) > 182.0 (0.0-6.0) /HPF Urine Bacteria (Auto) 2+ (Negative) /HPF Urine Mucus 2+ /HPF - Medical Decision Making This patient was sent into the emergency department after he was found to have some blood in his diaper concerning for hematuria. Patient's labs shows very mild renal insufficiency with a GFR of 51, and a urinalysis that shows a significant urinary tract infection and significant hematuria. The patient was placed on antibiotics and a urine culture has been sent. Despite the UTI, the patient does not appear to have any systemic infection. Vital signs reassuring including being afebrile. He appears safe for discharge home at this time. He will be placed on antibiotics and has been given an outpatient referral for ur ology. The patient's production machine computer operator has been contacted about the results and plan of action. Critical Care Time: No Critical care attestation.: If time is entered above; I have spent that time in minutes in the direct care of this critically ill patient, excluding procedure time. ED Disposition Clinical Impression: Hematuria Qualifiers: Hematuria type: unspecified type Qualified Code(s): R31.9 - Hematuria, unspecified UTI (urinary tract infection) Qualifiers: Urinary tract infection type: acute cystitis Hematuria presence: with hematuria Qualified Code(s): N30.01 - Acute cystitis with hematuria Disposition: TO HOME OR SELFCARE Is pt being admited?: No Condition: Stable Instructions: Urinary Tract Infection, Adult, Hematuria, Adult Additional Instructions: Please follow-up with a primary care in the next few days. I have given you a referral for a local urologist, Dr. Wang, to follow-up regarding the hematuria (the blood in the urine). Take the antibiotics as prescribed. Return to the emergency department with any worsening of your symptoms, new or concerning symptoms not addressed during this current emergency department visit, or with any acute distress. Prescriptions: Ciprofloxacin HCl [Ciprofloxacin TAB] 500 mg PO Q12HR #12 tab Referrals: DINO WANG MD [Staff Physician] - 2-3 Days PRIMARY CARE, [Primary Care Provider] - 2-3 Days Time of Disposition: 21:48
[2020-08-16 21:41] LABS: Bacteria,Urine 2+ /HPF (Negative); Bilirubin,Urine NEG (Negative); Blood,Urine LG (Negative); Color,Urine Yellow (Yellow); Mucus,Urine 2+ /HPF; Urobilinogen,Urine < 2.0 mg/dL (<2.0)
[2020-08-16 21:42] LABS: Protein,Urine >500 mg/dL (Negative); RBC,Urine > 182.0 /HPF (0.0-6.0); WBC,Urine > 182.0 /HPF (0.0-6.0)
[2020-08-16] MEDS ORDERED: levoFLOXacin 500 MG TAB PO ONE (21:46)
[2020-08-17 08:54] VITALS: BP 104/52
== END 2020-08-17 08:48 | disposition home or self-care (01) ==
LOC: ED 13:08
DX: N39.0 Urinary tract infection, site not specified (principal); R31.9 Hematuria, unspecified; I12.9 Hypertensive chronic kidney disease with stage 1 through stage 4 chronic kidney disease, or unspecified chronic kidney disease; N18.30 Chronic kidney disease, stage 3 unspecified; I50.9 Heart failure, unspecified; I48.91 Unspecified atrial fibrillation; Z87.442 Personal history of urinary calculi; Z79.899 Other long term (current) drug therapy; Z87.891 Personal history of nicotine dependence; Z98.890 Other specified postprocedural states
CPT/HCPCS: 36415; 80053; 81001; 85025; 85610; 85730; 87086